=== PATIENT | female | born 1985 | race Caucasian/White ===

== ENCOUNTER 2016-11-14 14:04 | Emergency (ER) | payer OTHER ==
[~2016-11-14] VITALS: Ht 154.9 cm; Wt 68.0 kg
--- NOTE | ~2016-11-14 | US106 ---
[facility] A Service of [facility] RADIOLOGY TEXT RESULTS PATIENT: AJIT GLEZ LOCATION: SED : [birth year] UNIT #: [id number] AGE: [address]: Ivan Ovalle MD SEX: F ORDER DR: [id number] [address] [address] [id number] E MR#: [id number] Acc #: [id number] NAME: AJIT GLEZ : 1985 SEX: F STUDY DATE/TIME: 11/14/2016 16:31 UNIT: SED ROOM: STUDY DESCRIPTION: US Preg Uterus Transvaginal Attending Physician: Ivan Ovalle M.D. Ordering Physician: Ivan Ovalle M.D. Primary Care Physician: Faith Palm A.P.R.N. MEDICAL IMAGING REPORT This report is preliminary unless electronic signature is present. EXAM Pelvic ultrasound endovaginal study. HISTORY . Nausea and vomiting for 2 days. FINDINGS Endovaginal ultrasound examination of the pelvis demonstrates no evidence of intrauterine . No uterine mass or enlargement. The endometrium measures close to 1 cm in thickness. Limited evaluation of the adnexa due to bowel gas. Neither ovary is identified. No free fluid. IMPRESSION 1. No evidence of intrauterine . In the setting of a positive beta HCG, this could be secondary to very early intrauterine or ectopic and continued clinical followup and serial beta HCG is recommended. 2. Limited evaluation of the adnexa due to bowel gas. Neither ovary is identified. 3. No free fluid. 4. No endometrial fluid. No uterine mass. Dictated by... Markus Michelle M.D. THIS IS AN ELECTRONICALLY VERIFIED REPORT Markus Michelle M.D. at 11/17/2016 11:41 PM DFL/bd TD: 11/15/2016 17:22 [facility] A Service of [facility] RADIOLOGY TEXT RESULTS PATIENT: AJIT GLEZ LOCATION: SED : [birth year] UNIT #: [id number] AGE: [address]: Ivan Ovalle MD SEX: F ORDER DR: JOB #: [id number] MEDICAL IMAGING REPORT Page 1 of 1
[~2016-11-14 14:04] MED LIST: ALBUTEROL17 GM INH; BROMFED DM COU118 ML PO; IBUPROFEN PO; IBUPROFEN800 MG PO; MACROBID100 M1 PO; NEURONTIN300 MG PO; NORCO 5/325 TAB1 TAB PO; VOLTAREN75 MG PO
[2016-11-14 14:58] LABS: URINE SOURCE CLEAN CATCH
[2016-11-14 15:01] LABS: URINE APPEARANCE CLEAR; URINE BLOOD NEG (NEG); URINE COLOR YELLOW; URINE GLUCOSE NEG (NORM); URINE KETONE 1+ (NEG); URINE LEUKOCYTE ESTERASE NEG (NEG); URINE NITRATE NEG (NEG); URINE PROTEIN TRACE (NEG); URINE SPECIFIC GRAVITY 1.025 (1.003-1.035); URINE UROBILINOGEN 0.2 MG/DL (NORM)
[2016-11-14 15:04] LABS: MICRO INDICATED? NO; URINE BILIRUBIN NEG (NEG)
[2016-11-14 15:06] LABS: BASOPHIL% 0.2 % (0-2.5); EOSINOPHIL# 0.1 X10e3 (0-0.7); EOSINOPHIL% 1.3 % (0.0-7.0); HEMATOCRIT 43.5 % (35.0-45.0); HEMOGLOBIN 14.9 gm/dL (12.0-16.0); LYMPHOCYTE# 0.4 X10e3 (1.0-3.5); LYMPHOCYTE% 4.3 % (17.0-45.0); MEAN CELL VOLUME 89.4 FL (83-96); MEAN CORPUSCULAR HEMOGLOBIN 30.8 PG (28-34); MEAN CORPUSCULAR HGB CONC 34.4 g/dL (30-36); MEAN PLATELET VOLUME 9.9 FL (6.5-11.5); MONOCYTE# 0.6 X10e3 (0-1.0); MONOCYTE% 6.1 % (3.0-12.0); NEUTROPHIL# 8.1 X10e3 (1.5-7.1); NEUTROPHIL% 88.1 % (40-75); PLATELET COUNT 183 X10e3 (140-420); RED BLOOD COUNT 4.86 X10e (3.90-5.30); RED CELL DISTRIBUTION WIDTH 12.9 % (11.0-15.5); WHITE BLOOD COUNT 9.2 X10e3 (4.0-10.5)
[2016-11-14 15:08] LABS: DIFF IND NO
[2016-11-14 15:17] LABS: AMPHETAMINE NEG (NEG); BARBITURATES NEG (NEG); BENZODIAZEPINES NEG (NEG); COCAINE NEG (NEG); MARIJUANA NEG (NEG); OPIATES NEG (NEG); TRICYCLIC ANTIDEPRESSANTS NEG (NEG); U METHADONE NEG (NEG)
[2016-11-14 15:32] LABS: ALBUMIN SERUM 4.7 g/dL (3.5-5.0); ALKALINE PHOSPHATASE 58 U/L (32-92); ALT (SGPT) 20 U/L (10-40); AMYLASE 18 U/L (0-46); AST (SGOT) 23 U/L (10-42); BLOOD UREA NITROGEN 20 mg/dL (9-23); BUN/CREATININE RATIO 22.22; CALCIUM SERUM 9.3 mg/dL (8.4-10.2); CARBON DIOXIDE 24 mmol/L (22-31); CHLORIDE 104 mmol/L (100-111); CREATININE SERUM 0.9 mg/dL (0.6-1.4); GLOM FILT RATE Estimated 86.5 mL/min (>60); GLUCOSE FASTING 118 mg/dL (70-110); LIPASE 32 U/L (22-51); POTASSIUM 3.5 mmol/L (3.5-5.1); PROTEIN TOTAL SERUM 8.3 g/dL (6.0-8.3); SODIUM 137 mmol/L (135-145)
[2016-11-14 15:43] LABS: BILIRUBIN, DIRECT <0.1 mg/dL (0.0-0.2); BILIRUBIN,INDIRECT 0.9 mg/dL (0.0-0.9)
[2016-11-14 19:17] LABS: BASOPHIL% 0.4 % (0-2.5); DIFF IND NO; EOSINOPHIL# 0.1 X10e3 (0-0.7); EOSINOPHIL% 1.9 % (0.0-7.0); HEMATOCRIT 40.3 % (35.0-45.0); HEMOGLOBIN 13.5 gm/dL (12.0-16.0); LYMPHOCYTE# 0.8 X10e3 (1.0-3.5); LYMPHOCYTE% 12.3 % (17.0-45.0); MEAN CELL VOLUME 90.6 FL (83-96); MEAN CORPUSCULAR HEMOGLOBIN 30.4 PG (28-34); MEAN CORPUSCULAR HGB CONC 33.6 g/dL (30-36); MEAN PLATELET VOLUME 9.6 FL (6.5-11.5); MONOCYTE# 0.5 X10e3 (0-1.0); MONOCYTE% 7.5 % (3.0-12.0); NEUTROPHIL# 4.9 X10e3 (1.5-7.1); NEUTROPHIL% 77.9 % (40-75); PLATELET COUNT 158 X10e3 (140-420); RED BLOOD COUNT 4.45 X10e (3.90-5.30); RED CELL DISTRIBUTION WIDTH 12.6 % (11.0-15.5); WHITE BLOOD COUNT 6.3 X10e3 (4.0-10.5)
== END 2016-11-14 19:39 | disposition home or self-care (01) ==
LOC: SED 14:04
PROVIDERS: Emergency Medicine
DX: O21.9 Vomiting of pregnancy, unspecified (principal); F41.9 Anxiety disorder, unspecified; O99.330 Smoking (tobacco) complicating pregnancy, unspecified trimester; Z88.0 Allergy status to penicillin
CPT/HCPCS: 36415; 76817; 80048; 80076; 80307; 81003; 82150; 83605; 83690; 84702; 84703; 85025; 96374; 96375; 99284; J2270; J2405

== ENCOUNTER 2016-11-19 06:43 | Emergency (ER) | payer OTHER ==
[~2016-11-19] VITALS: Ht 154.9 cm; Wt 68.0 kg
[2016-11-19] MEDS ORDERED: EXPECTA PRENAT1 EACH PO (06:50)
[2016-11-19 07:32] LABS: BASOPHIL# 0.1 X10e3 (0-0.3); BASOPHIL% 0.7 % (0-2.5); EOSINOPHIL# 0.2 X10e3 (0-0.7); EOSINOPHIL% 3.1 % (0.0-7.0); HEMATOCRIT 43.3 % (35.0-45.0); HEMOGLOBIN 14.8 gm/dL (12.0-16.0); LYMPHOCYTE# 1.5 X10e3 (1.0-3.5); LYMPHOCYTE% 19.8 % (17.0-45.0); MEAN CELL VOLUME 88.9 FL (83-96); MEAN CORPUSCULAR HEMOGLOBIN 30.5 PG (28-34); MEAN CORPUSCULAR HGB CONC 34.2 g/dL (30-36); MEAN PLATELET VOLUME 9.8 FL (6.5-11.5); MONOCYTE# 0.5 X10e3 (0-1.0); MONOCYTE% 6.6 % (3.0-12.0); NEUTROPHIL# 5.2 X10e3 (1.5-7.1); NEUTROPHIL% 69.8 % (40-75); PLATELET COUNT 215 X10e3 (140-420); RED BLOOD COUNT 4.87 X10e (3.90-5.30); WHITE BLOOD COUNT 7.5 X10e3 (4.0-10.5)
[2016-11-19 07:38] LABS: DIFF IND NO
[2016-11-19 08:16] LABS: URINE SOURCE CLEAN CATCH
[2016-11-19 08:19] LABS: URINE APPEARANCE SL CLOUDY; URINE BILIRUBIN NEG (NEG); URINE BLOOD 3+ (NEG); URINE COLOR AMBER; URINE GLUCOSE NEG (NORM); URINE KETONE NEG (NEG); URINE LEUKOCYTE ESTERASE TRACE (NEG); URINE NITRATE NEG (NEG); URINE PH 6.5 (5-8); URINE PROTEIN TRACE (NEG); URINE SPECIFIC GRAVITY <=1.005 (1.003-1.035); URINE UROBILINOGEN 0.2 MG/DL (NORM)
[2016-11-19 08:21] LABS: MICRO INDICATED? YES
[2016-11-19 08:22] LABS: CULTURE INDICATED? YES; URINE BACTERIA NEG (NEG); URINE RBC INNUM /[HPF] (0-2); URINE SQUAMOUS EPITHELIAL CELL FEW /[HPF]; URINE TRANSITIONAL EPI CELLS OCCAS /[HPF]
== END 2016-11-19 09:54 | disposition home or self-care (01) ==
LOC: SED 06:43
PROVIDERS: Emergency Medicine
DX: O20.0 Threatened abortion (principal); F41.9 Anxiety disorder, unspecified; O99.341 Other mental disorders complicating pregnancy, first trimester; O99.331 Smoking (tobacco) complicating pregnancy, first trimester
CPT/HCPCS: 36415; 81003; 84702; 85025; 87086; 96361; 96374; 96375; 99284; J1170; J2270; J2405

== ENCOUNTER 2016-12-01 21:34 | Emergency (ER) | payer OTHER ==
[~2016-12-01 21:34] MED LIST changes: +EXPECTA PRENAT1 EACH PO
== END 2016-12-01 21:45 | disposition left against medical advice (07) ==
LOC: CED 21:34
DX: Z53.21 Procedure and treatment not carried out due to patient leaving prior to being seen by health care provider (principal)

== ENCOUNTER 2016-12-01 21:58 | Emergency (ER) | payer OTHER ==
[~2016-12-01] VITALS: Ht 154.9 cm; Wt 63.5 kg
--- NOTE | ~2016-12-01 | US61 ---
[facility] A Service of [facility] RADIOLOGY TEXT RESULTS PATIENT: AJIT GLEZ LOCATION: SED : [birth year] UNIT #: [id number] AGE: [address]: J Carlos Kumar MD SEX: F ORDER DR: [id number] [address] [address] [id number] E MR#: [id number] Acc #: [id number] NAME: AJIT GLEZ : 1985 SEX: F STUDY DATE/TIME: 12/02/2016 1:42 UNIT: SED ROOM: STUDY DESCRIPTION: US /Mat <14Wk / Attending Physician: J Carlos Kumar M.D. Ordering Physician: J Carlos Kumar M.D. Primary Care Physician: Faith Palm A.P.R.N. MEDICAL IMAGING REPORT This report is preliminary unless electronic signature is present. EXAM Pelvic ultrasound, transabdominal and endovaginal. HISTORY . Left flank pain for 1 day. FINDINGS Ultrasound examination of the pelvis was performed with transabdominal and endovaginal technique. No evidence of intrauterine . No endometrial fluid or debris or endometrial thickening. No uterine mass. Blood flow is noted in both ovaries on Doppler. No ovarian or adnexal mass. No free fluid. IMPRESSION The uterus and ovaries are unremarkable. No evidence of intrauterine or ectopic . Continued clinical followup and serial beta hCG is recommended. Blood flow is noted in both ovaries. No free fluid. Dictated by... Markus Michelle M.D. THIS IS AN ELECTRONICALLY VERIFIED REPORT Markus Michelle M.D. at 12/02/2016 4:23 AM DFL/tanesha TD: 12/02/2016 03:11 JOB #: [id number] [facility] A Service of [facility] RADIOLOGY TEXT RESULTS PATIENT: AJIT GLEZ LOCATION: SED : [birth year] UNIT #: [id number] AGE: [address]: J Carlos Kumar MD SEX: F ORDER DR: MEDICAL IMAGING REPORT Page 1 of 1
[2016-12-01 23:35] LABS: URINE SOURCE CATH
[2016-12-01 23:38] LABS: BASOPHIL# 0.1 X10e3 (0-0.3); EOSINOPHIL# 0.3 X10e3 (0-0.7); EOSINOPHIL% 3.3 % (0.0-7.0); HEMATOCRIT 39.8 % (35.0-45.0); HEMOGLOBIN 13.4 gm/dL (12.0-16.0); LYMPHOCYTE# 1.9 X10e3 (1.0-3.5); LYMPHOCYTE% 24.2 % (17.0-45.0); MEAN CELL VOLUME 89.4 FL (83-96); MEAN CORPUSCULAR HEMOGLOBIN 30.1 PG (28-34); MEAN CORPUSCULAR HGB CONC 33.6 g/dL (30-36); MEAN PLATELET VOLUME 9.9 FL (6.5-11.5); MONOCYTE# 0.6 X10e3 (0-1.0); NEUTROPHIL# 5.1 X10e3 (1.5-7.1); NEUTROPHIL% 64.5 % (40-75); PLATELET COUNT 230 X10e3 (140-420); RED BLOOD COUNT 4.46 X10e (3.90-5.30)
[2016-12-01 23:39] LABS: MICRO INDICATED? YES; URINE APPEARANCE CLEAR; URINE BILIRUBIN NEG (NEG); URINE BLOOD 1+ (NEG); URINE COLOR YELLOW; URINE GLUCOSE NEG (NORM); URINE KETONE NEG (NEG); URINE LEUKOCYTE ESTERASE NEG (NEG); URINE NITRATE NEG (NEG); URINE PROTEIN NEG (NEG); URINE SPECIFIC GRAVITY 1.025 (1.003-1.035); URINE UROBILINOGEN 0.2 MG/DL (NORM)
[2016-12-01 23:39] LABS: DIFF IND NO
[2016-12-01 23:44] LABS: CULTURE INDICATED? NO; URINE BACTERIA NEG (NEG); URINE MUCUS PRESENT; URINE RBC 0-2 /[HPF] (0-2); URINE SQUAMOUS EPITHELIAL CELL OCCAS /[HPF]; URINE WBC NEG /[HPF] (0-5)
[2016-12-01 23:52] LABS: ALBUMIN SERUM 4.4 g/dL (3.5-5.0); BILIRUBIN, DIRECT 0.1 mg/dL (0.0-0.2); BILIRUBIN,INDIRECT 0.2 mg/dL (0.0-0.9); BILIRUBIN,TOTAL 0.3 mg/dL (0.2-2.0); BUN/CREATININE RATIO 26.25; CALCIUM SERUM 9.2 mg/dL (8.4-10.2); CREATININE SERUM 0.8 mg/dL (0.6-1.4); GLOM FILT RATE Estimated 99.7 mL/min (>60); POTASSIUM 3.9 mmol/L (3.5-5.1); PROTEIN TOTAL SERUM 7.6 g/dL (6.0-8.3)
[2016-12-05 06:25] LABS: CHLAMYDIA TRACH Not Detected (Not Detected); N GONOR Not Detected (Not Detected)
== END 2016-12-02 03:23 | disposition home or self-care (01) ==
LOC: SED 21:58
PROVIDERS: Emergency Medicine
DX: O03.4 Incomplete spontaneous abortion without complication (principal); O99.331 Smoking (tobacco) complicating pregnancy, first trimester
CPT/HCPCS: 36415; 51701; 76801; 76817; 80048; 80076; 81003; 84702; 85025; 87491; 87591; 87808; 87905; 99284